=== PATIENT | female | born 1940 | race Caucasian/White ===

== ENCOUNTER 2019-03-03 00:40 | Emergency (ER) | payer MEDICARE, OTHER ==
[~2019-03-03] VITALS: Ht 149.9 cm; Wt 65.8 kg
[~2019-03-03 00:40] MED LIST: ALPR.25; ALPR1; ALPR1 PO; CLIMARA; CYCL10; ESOM20; ESOM20 PO; ESTR.05TPB; ESTR.1TPBW; EZET10 PO; LEVO750 PO; METO10 PO; Norco 5-325 Ta1 EACH PO; OLME20; OMEP40CA12 PO; PANT40; PRED10 PO; RXALBOI INH; SIMV10; Valium2 MG PO
[2019-03-03] MEDS ORDERED: SIMV40 PO (01:13)
[2019-03-03] MEDS ORDERED: OLME20 PO (01:13)
[2019-03-03] MEDS ORDERED: NYST237S SS (01:37)
[2019-03-03] MEDS ORDERED: Zovirax400 MG PO (01:37)
== END 2019-03-03 02:01 | disposition home or self-care (01) ==
LOC: ER 00:40
DX: B00.2 Herpesviral gingivostomatitis and pharyngotonsillitis (principal); Z88.2 Allergy status to sulfonamides; Z88.5 Allergy status to narcotic agent; Z79.899 Other long term (current) drug therapy; J44.9 Chronic obstructive pulmonary disease, unspecified; K21.9 Gastro-esophageal reflux disease without esophagitis; F41.9 Anxiety disorder, unspecified; Z87.891 Personal history of nicotine dependence
CPT/HCPCS: 99282

== ENCOUNTER 2019-05-11 20:52 | Emergency (ER) | payer MEDICARE, OTHER ==
[~2019-05-11] VITALS: Ht 149.9 cm; Wt 65.8 kg
[~2019-05-11 20:52] MED LIST changes: +NYST237S SS; +OLME20 PO; +SIMV40 PO; +Zovirax400 MG PO
[2019-05-11] MEDS ORDERED: SUCRALFATE 1 GM (21:08)
[2019-05-11] MEDS ORDERED: AMIT10 PO (21:08)
[2019-05-11] MEDS ORDERED: LIDOCAINE 2% (21:08)
[2019-05-11] MEDS ORDERED: Protonix40 MG PO (21:08)
[2019-05-11 21:30] LABS: BASOPHILS ABSOLUTE AUTO 0.01 K/mm3 (0.00-0.23); BASOPHILS PERCENT AUTO 0 % (0-2); EOSINOPHILS ABSOLUTE AUTO 0.14 K/mm3 (0.00-0.68); EOSINOPHILS PERCENT AUTO 3 % (0-6); Hematocrit 41.7 % (33.0-51.0); Hemoglobin 13.5 g/dL (11.5-16.0); IMMATURE GRAN ABSOLUTE AUTO 0.01 K/mm3 (0.00-0.10); IMMATURE GRAN PERCENT AUTO 0 % (0-1); LYMPHOCYTES PERCENT AUTO 37 % (21-46); MONOCYTES ABSOLUTE AUTO 0.48 K/mm3 (0.16-1.47); MONOCYTES PERCENT AUTO 9 % (4-13); Mean Corpuscular HGB 30.5 pg (26.0-34.0); Mean Corpuscular HGB Conc 32.4 g/dL (31.5-36.5); Mean Corpuscular Volume 94 fL (80-100); Mean Platelet Volume 8.9 fL (9.1-12.4); NEUTROPHILS ABSOLUTE AUTO 2.74 K/mm3 (1.96-9.15); NEUTROPHILS PERCENT AUTO 51 % (41-73); Platelet Count 237 K/mm3 (150-400); RDW Coefficient Variation 12.1 % (11.7-14.2); RDW Standard Deviation 42.4 fL (35.1-46.3); Red Blood Cell Count 4.42 M/mm3 (3.80-5.20); White Blood Cell Count 5.38 K/mm3 (4.00-11.30)
[2019-05-11 21:59] LABS: Alanine Aminotransfer (ALT/SGP 24 U/L (12-78); Albumin, Blood 3.6 g/dL (3.4-5.0); Alk Phos 90 U/L (50-136); Anion Gap 5 mmol/L (6-16); Aspartate Aminotrans (AST/SGOT 21 U/L (12-37); Bilirubin, Total 0.2 mg/dL (0.1-1.0); Blood Urea Nitrogen 23 mg/dL (8-24); Bun/Creatinine Ratio 26.8 (12.0-20.0); CO2, Blood 31 mmol/L (21-32); Chloride, Blood 107 mmol/L (98-108); Creatinine, Blood 0.86 mg/dL (0.40-1.00); Globulin, Blood 3.5 g/dL (2.2-4.0); Glomerular Filtration Rate >60 (60-); Glucose, Blood 132 mg/dL (70-99); Potassium, Blood 3.8 mmol/L (3.5-5.5); Sodium, Blood 143 mmol/L (136-145); Total Protein, Blood 7.1 g/dL (6.4-8.2); Troponin I <0.015 ng/mL (0.000-0.040)
== END 2019-05-12 01:03 | disposition home or self-care (01) ==
LOC: ER 20:52
PROVIDERS: Physician Assistant
DX: R07.9 Chest pain, unspecified (principal); R06.02 Shortness of breath; J44.9 Chronic obstructive pulmonary disease, unspecified; F41.9 Anxiety disorder, unspecified; E78.5 Hyperlipidemia, unspecified; Z88.2 Allergy status to sulfonamides; Z88.5 Allergy status to narcotic agent; Z79.899 Other long term (current) drug therapy; Z87.891 Personal history of nicotine dependence
CPT/HCPCS: 36415; 71046; 71260; 80053; 84484; 85025; 85379; 93005; 93010; 96374-59; 96375-59; 99284-25; J1885; J2930; Q9967

== ENCOUNTER 2019-05-15 23:08 | Emergency (ER) | payer MEDICARE, OTHER ==
[~2019-05-15] VITALS: Ht 149.9 cm; Wt 63.5 kg
[~2019-05-15 23:08] MED LIST changes: +AMIT10 PO; +LIDOCAINE 2%; +Protonix40 MG PO; +SUCRALFATE 1 GM
[2019-05-16 01:44] LABS: BASOPHILS ABSOLUTE AUTO 0.03 K/mm3 (0.00-0.23); BASOPHILS PERCENT AUTO 1 % (0-2); EOSINOPHILS ABSOLUTE AUTO 0.18 K/mm3 (0.00-0.68); EOSINOPHILS PERCENT AUTO 3 % (0-6); Hematocrit 45.4 % (33.0-51.0); Hemoglobin 14.8 g/dL (11.5-16.0); IMMATURE GRAN ABSOLUTE AUTO 0.03 K/mm3 (0.00-0.10); IMMATURE GRAN PERCENT AUTO 1 % (0-1); LYMPHOCYTES ABSOLUTE AUTO 1.64 K/mm3 (0.84-5.20); LYMPHOCYTES PERCENT AUTO 30 % (21-46); MONOCYTES ABSOLUTE AUTO 0.37 K/mm3 (0.16-1.47); MONOCYTES PERCENT AUTO 7 % (4-13); Mean Corpuscular HGB 30.9 pg (26.0-34.0); Mean Corpuscular HGB Conc 32.6 g/dL (31.5-36.5); Mean Corpuscular Volume 95 fL (80-100); Mean Platelet Volume 9.1 fL (9.1-12.4); NEUTROPHILS ABSOLUTE AUTO 3.18 K/mm3 (1.96-9.15); NEUTROPHILS PERCENT AUTO 59 % (41-73); Platelet Count 278 K/mm3 (150-400); RDW Standard Deviation 42.3 fL (35.1-46.3); Red Blood Cell Count 4.79 M/mm3 (3.80-5.20); White Blood Cell Count 5.43 K/mm3 (4.00-11.30)
[2019-05-16 01:53] LABS: Source, Urine Clean Catch
[2019-05-16 01:57] LABS: Bilirubin, Urine Neg (Neg); Blood, Urine 1+ (Neg); Glucose Qualitative, Urine Neg (Neg); Ketones, Urine Neg (Neg); Leukocyte Esterase, Urine 2+ (Neg); Nitrite, Urine Neg (Neg); Protein, Urine Neg (Neg); Urobilinogen, Urine NORM (Normal)
[2019-05-16 01:59] LABS: Appearance, Urine Clear (Clear); Color, Urine Yellow (P-Yellow)
[2019-05-16 02:00] LABS: Alanine Aminotransfer (ALT/SGP 32 U/L (12-78); Albumin/Globulin Ratio 1.1 (0.8-1.8); Alk Phos 116 U/L (50-136); Anion Gap 5 mmol/L (6-16); Aspartate Aminotrans (AST/SGOT 28 U/L (12-37); Bilirubin, Total 0.3 mg/dL (0.1-1.0); Blood Urea Nitrogen 24 mg/dL (8-24); Bun/Creatinine Ratio 27.3 (12.0-20.0); CO2, Blood 31 mmol/L (21-32); Calcium, Blood 9.3 mg/dL (8.5-10.1); Chloride, Blood 104 mmol/L (98-108); Creatinine, Blood 0.88 mg/dL (0.40-1.00); Globulin, Blood 3.8 g/dL (2.2-4.0); Glomerular Filtration Rate >60 (60-); Glucose, Blood 121 mg/dL (70-99); Magnesium, Blood 2.6 mg/dL (1.6-2.4); Potassium, Blood 4.7 mmol/L (3.5-5.5); Sodium, Blood 140 mmol/L (136-145); Total Protein, Blood 7.8 g/dL (6.4-8.2); Troponin I <0.015 ng/mL (0.000-0.040)
[2019-05-16 02:02] LABS: Bacteria Not Seen /hpf; Red Blood Cells, Urine Not Seen /hpf (0-2); Squamous Epithelial Cells Mod /hpf (Few)
== END 2019-05-16 03:40 | disposition home or self-care (01) ==
LOC: ER 23:08
PROVIDERS: Emergency Medicine
DX: K59.00 Constipation, unspecified (principal); K21.9 Gastro-esophageal reflux disease without esophagitis; F41.9 Anxiety disorder, unspecified; E78.5 Hyperlipidemia, unspecified; J44.9 Chronic obstructive pulmonary disease, unspecified; Z87.891 Personal history of nicotine dependence; Z88.2 Allergy status to sulfonamides; Z88.5 Allergy status to narcotic agent; Z79.899 Other long term (current) drug therapy
CPT/HCPCS: 36415; 74176; 80053; 81001; 83690; 83735; 83880; 84484; 85025; 87086; 87147; 93005; 93010; 99284-25

== ENCOUNTER 2019-10-15 22:09 | Inpatient (IN) | payer MEDICARE, OTHER ==
[~2019-10-15] VITALS: Ht 149.9 cm; Wt 67.4 kg
[2019-10-15 22:45] LABS: BASOPHILS ABSOLUTE AUTO 0.03 K/mm3 (0.00-0.23); BASOPHILS PERCENT AUTO 0 % (0-2); EOSINOPHILS ABSOLUTE AUTO 0.35 K/mm3 (0.00-0.68); EOSINOPHILS PERCENT AUTO 4 % (0-6); Hematocrit 41.5 % (33.0-51.0); Hemoglobin 12.9 g/dL (11.5-16.0); IMMATURE GRAN ABSOLUTE AUTO 0.03 K/mm3 (0.00-0.10); IMMATURE GRAN PERCENT AUTO 0 % (0-1); LYMPHOCYTES PERCENT AUTO 18 % (21-46); MONOCYTES PERCENT AUTO 11 % (4-13); Mean Corpuscular HGB 29.7 pg (26.0-34.0); Mean Corpuscular HGB Conc 31.1 g/dL (31.5-36.5); Mean Corpuscular Volume 95 fL (80-100); Mean Platelet Volume 9.2 fL (9.1-12.4); NEUTROPHILS ABSOLUTE AUTO 6.81 K/mm3 (1.96-9.15); NEUTROPHILS PERCENT AUTO 67 % (41-73); Platelet Count 277 K/mm3 (150-400); RDW Coefficient Variation 11.9 % (11.7-14.2); RDW Standard Deviation 41.7 fL (35.1-46.3); Red Blood Cell Count 4.35 M/mm3 (3.80-5.20); White Blood Cell Count 10.12 K/mm3 (4.00-11.30)
[2019-10-15 23:05] LABS: Alanine Aminotransfer (ALT/SGP 22 U/L (12-78); Albumin, Blood 3.1 g/dL (3.4-5.0); Albumin/Globulin Ratio 0.7 (0.8-1.8); Alk Phos 107 U/L (50-136); Anion Gap 7 mmol/L (6-16); Aspartate Aminotrans (AST/SGOT 18 U/L (12-37); Bilirubin, Total 0.2 mg/dL (0.1-1.0); Blood Urea Nitrogen 19 mg/dL (8-24); Bun/Creatinine Ratio 17.4 (12.0-20.0); CO2, Blood 32 mmol/L (21-32); Chloride, Blood 101 mmol/L (98-108); Creatinine, Blood 1.09 mg/dL (0.40-1.00); Globulin, Blood 4.6 g/dL (2.2-4.0); Glomerular Filtration Rate 52 (60-); Glucose, Blood 147 mg/dL (70-99); Potassium, Blood 3.7 mmol/L (3.5-5.5); Sodium, Blood 140 mmol/L (136-145); Total Protein, Blood 7.7 g/dL (6.4-8.2); Troponin I <0.015 ng/mL (0.000-0.040)
[2019-10-15 23:25] LABS: Influenza A Negative (NEGATIVE); Influenza B Negative (NEGATIVE)
[2019-10-16 04:41] LABS: Hematocrit 38.5 % (33.0-51.0); Hemoglobin 11.8 g/dL (11.5-16.0); Mean Corpuscular HGB 29.5 pg (26.0-34.0); Mean Corpuscular HGB Conc 30.6 g/dL (31.5-36.5); Mean Corpuscular Volume 96 fL (80-100); Mean Platelet Volume 9.1 fL (9.1-12.4); Platelet Count 264 K/mm3 (150-400); RDW Coefficient Variation 11.9 % (11.7-14.2); RDW Standard Deviation 42.8 fL (35.1-46.3); White Blood Cell Count 7.69 K/mm3 (4.00-11.30)
[2019-10-16 04:51] LABS: Adenovirus Not Detected (NOT DETECT); Bordetella pertussis Not Detected (NOT DETECT); Chlamydophila pneumoniae Not Detected (NOT DETECT); Coronavirus 229E Not Detected (NOT DETECT); Coronavirus HKU1 Not Detected (NOT DETECT); Coronavirus NL63 Not Detected (NOT DETECT); Coronavirus OC43 Not Detected (NOT DETECT); Human Metapneumovirus Not Detected (NOT DETECT); Human Rhinovirus/Enterovirus Not Detected (NOT DETECT); Influenza A Not Detected (NOT DETECT); Influenza A/2009-H1 Not Detected (NOT DETECT); Influenza A/H1 Not Detected (NOT DETECT); Influenza A/H3 Not Detected (NOT DETECT); Influenza B Not Detected (NOT DETECT); Mycoplasma pneumoniae Not Detected (NOT DETECT); Parainfluenza Virus 1 Not Detected (NOT DETECT); Parainfluenza Virus 2 Not Detected (NOT DETECT); Parainfluenza Virus 3 Not Detected (NOT DETECT); Parainfluenza Virus 4 Not Detected (NOT DETECT); Respiratory Syncytial Virus Not Detected (NOT DETECT)
[2019-10-16 05:00] LABS: Alanine Aminotransfer (ALT/SGP 20 U/L (12-78); Albumin, Blood 2.8 g/dL (3.4-5.0); Albumin/Globulin Ratio 0.6 (0.8-1.8); Alk Phos 93 U/L (50-136); Anion Gap 8 mmol/L (6-16); Aspartate Aminotrans (AST/SGOT 16 U/L (12-37); Bilirubin, Total 0.2 mg/dL (0.1-1.0); Blood Urea Nitrogen 14 mg/dL (8-24); Bun/Creatinine Ratio 15.3 (12.0-20.0); CO2, Blood 28 mmol/L (21-32); Calcium, Blood 8.8 mg/dL (8.5-10.1); Chloride, Blood 103 mmol/L (98-108); Creatinine, Blood 0.92 mg/dL (0.40-1.00); Globulin, Blood 4.4 g/dL (2.2-4.0); Glomerular Filtration Rate >60 (60-); Glucose, Blood 212 mg/dL (70-99); Potassium, Blood 3.9 mmol/L (3.5-5.5); Sodium, Blood 139 mmol/L (136-145); Total Protein, Blood 7.2 g/dL (6.4-8.2)
--- NOTE | 2019-10-16 07:38 | NUR ---
SHIFT SUMMARY PT NEW ADMIT THIS AM. AAOX4. ON 3L VIA NC, DENIES SOB AT REST. PT ORIENTED TO ROOM + CALL LIGHT USE. SBA UP TO RESTROOM, TOLERATES WELL. PT RESTING IN SMALL INCRIMENTS SINCE ADMISSION TO FLOOR. NO ACUTE RESPIRATORY DISTRESS NOTED. REPORT TO DAY SHIFT RN. PT SITTING UP IN BED AT THIS TIME WITH CALL LIGHT IN REACH.
--- NOTE | 2019-10-16 16:44 | NUR ---
SHIFT SUMMARY PT A&OX4, VSS, 3LNC, REP SOB W/EXERTION IMPROVED TODAY, LUNGS DIMINISHED, FLUTTER VALVE, I.S. AND TCDB EDU & ENC. AMBULATES INDEPENDENT TO BRP. STARTED ORAL PREDNISONE AND AZITH. MAISHA PO, DENIES N&V. VOIDING WELL. WILL REPORT TO ONCOMING NOC RN.
--- NOTE | 2019-10-17 05:47 | NUR ---
SHIFT SUMMARY: GLENYS HAS RESTED INTERMITTENTLY DURING THE SHIFT. SHE HAS COMPLAINED OF A "TICKLE" IN HER THROAT FOR WHICH SHE REPORTED THE PRN ALBUTEROL TREATMENT WAS HELPFUL. SHE IS ASKING ABOUT COUGH DROPS TO AID WITH SAID TICKLE. SHE IS ABLE TO MAKE HER NEEDS KNOWN. SHE IS MAINTAINING SATURATIONS WITH O2 VIA NC AT 3 LPM. SHE USES HER CALL LIGHT APPROPRIATELY. SHE IS SITTING UP IN BED WITH HER CALL LIGHT IN REACH. WILL REPORT TO DAY SHIFT RN.
[2019-10-17] MEDS ORDERED: ACET325 PO (14:14)
[2019-10-17] MEDS ORDERED: AZIT250 PO (14:15)
[2019-10-17] MEDS ORDERED: ALBU2.5V5 INH (14:15)
[2019-10-17] MEDS ORDERED: Duoneb 2.5-0.5 M3 ML INH (14:18)
[2019-10-17] MEDS ORDERED: ONDA4ODT MM (14:18)
[2019-10-17] MEDS ORDERED: PRED10 PO (14:20)
[2019-10-17] MEDS ORDERED: ALBU90OI INH (14:20)
--- NOTE | 2019-10-17 15:55 | NUR ---
DISCHARGE SUMMARY PT A&OX4, VSS, LEFT FLOOR VIA WC WITH RN, TO GO HOME WITH PARTNER, WITH ALL PERSONAL POSSESSIONS INCLUDING DC PACKET, WEARING 4LNC PORTABLE OXYGEN; [facility] DELIVERED OXYGEN EQUIPMENT TO HOSPITAL PER ORDERS FROM RT THAT WERE FAXED OVER. [facility] I SENT A COPY OF PT SCRIPT CARD PER REQUEST OF "JOVI" AT [facility]. PT REP WILL DRIVE THROUGH TO [facility] S[facility] PRIOR TO GOING HOME. DC ORDERS PROVIDED TO PT, PT AND PARTNER JERICHO BROWN UNDERSTOOD THOSE. IV DC'D.
== END 2019-10-17 16:00 | disposition home or self-care (01) | DRG 189 ==
LOC: ER 22:09 → SURS 10-16 01:12
PROVIDERS: Emergency Medicine; ADMIT Internal Medicine
DX: J96.21 Acute and chronic respiratory failure with hypoxia (principal); J44.1 Chronic obstructive pulmonary disease with (acute) exacerbation; I10 Essential (primary) hypertension; K21.9 Gastro-esophageal reflux disease without esophagitis; D75.1 Secondary polycythemia; F41.9 Anxiety disorder, unspecified; R00.0 Tachycardia, unspecified; E78.00 Pure hypercholesterolemia, unspecified; Z88.2 Allergy status to sulfonamides; Z88.5 Allergy status to narcotic agent; Z87.891 Personal history of nicotine dependence
CPT/HCPCS: 0099U; 36415; 71045; 80053; 83605; 83735; 83880; 84145; 84484; 85025; 85027; 87070; 87205; 87804; 93005; 93010; 94640; 94644; 94760; 94761; 96360; 96361; 99285-25; A9270-GY; J1650; J1956; J2930; J7030; J7512

== ENCOUNTER 2020-05-25 07:53 | Day surgery (SDC) | payer MEDICARE, OTHER ==
[~2020-05-25] VITALS: Ht 149.9 cm; Wt 67.6 kg
[~2020-05-25 07:53] MED LIST changes: +ACET325 PO; +ALBU2.5V5 INH; +ALBU90OI INH; +AZIT250 PO; +Duoneb 2.5-0.5 M3 ML INH; +LIVALO2 MG; +ONDA4ODT MM
--- NOTE | 2020-05-25 08:25 | NUR ---
05/25/20 0825 MAMI GARZA ONE ATTEMPT IN RH BY YEN VALVE ONE SUCCESFUL IN RFA BY YEN PT TOW
--- NOTE | 2020-05-25 09:42 | NUR ---
05/25/20 0942 Coco Watson WHEN INSERTED THE SCOPE, PT DESATURATED TO 82% AND CHIN LIFT WAS DONE, PALM MASK WAS PLACED AND CONTINUAL JAW THRUST THROUGH THE PROCEDURE UNTIL ABOUT THE LAST FIVE MINS.
--- NOTE | 2020-05-25 10:03 | NUR ---
05/25/20 1003 Mariana Del Angel V PT REPORTS DISCOMFORT IN HER R IN . R EYE APPEARS SLIGHTLY RED AND WATERY, NO OBVIOUS ABRASIONS NOTED. PRIOR TO D/C PT STATED DISCOMFORT WAS IMPROVING.
== END 2020-05-25 09:59 | disposition home or self-care (01) ==
LOC: ORSCSDS 07:53
PROVIDERS: Student in an Organized Health Care Education/Training Program
PROC: 0DB48ZX Excision of Esophagogastric Junction, Via Natural or Artificial Opening Endoscopic, Diagnostic (ICD-10-PCS; principal; 2020-05-25 09:15)
PROC: 0DB88ZX Excision of Small Intestine, Via Natural or Artificial Opening Endoscopic, Diagnostic (ICD-10-PCS; principal; 2020-05-25 09:15)
PROC: 0DB68ZX Excision of Stomach, Via Natural or Artificial Opening Endoscopic, Diagnostic (ICD-10-PCS; principal; 2020-05-25 09:15)
DX: R10.13 Epigastric pain (principal); K31.7 Polyp of stomach and duodenum; K29.80 Duodenitis without bleeding; K21.9 Gastro-esophageal reflux disease without esophagitis; I10 Essential (primary) hypertension; E78.5 Hyperlipidemia, unspecified; E66.9 Obesity, unspecified; Z68.30 Body mass index [BMI] 30.0-30.9, adult; K44.9 Diaphragmatic hernia without obstruction or gangrene; K29.70 Gastritis, unspecified, without bleeding; Z79.899 Other long term (current) drug therapy
CPT/HCPCS: 88305; 88342; J2704; J7120

== ENCOUNTER 2023-06-15 11:13 | Emergency (ER) | payer MEDICARE, OTHER ==
[~2023-06-15] VITALS: Ht 149.9 cm; Wt 72.6 kg
[2023-06-15] MEDS ORDERED: TAMSULOSIN HCL0.4 M1 PO (11:40)
[2023-06-15] MEDS ORDERED: TRAM50 PO (11:40)
[2023-06-15 11:43] LABS: Source, Urine Clean Catch
[2023-06-15 11:49] LABS: BASOPHILS ABSOLUTE AUTO 0.02 K/mm3 (0.00-0.23); BASOPHILS PERCENT AUTO 0 % (0-2); EOSINOPHILS ABSOLUTE AUTO 0.07 K/mm3 (0.00-0.68); EOSINOPHILS PERCENT AUTO 1 % (0-6); Hematocrit 42.6 % (33.0-51.0); IMMATURE GRAN ABSOLUTE AUTO 0.02 K/mm3 (0.00-0.10); IMMATURE GRAN PERCENT AUTO 0 % (0-1); LYMPHOCYTES ABSOLUTE AUTO 1.83 K/mm3 (0.84-5.20); LYMPHOCYTES PERCENT AUTO 25 % (21-46); MONOCYTES ABSOLUTE AUTO 0.63 K/mm3 (0.16-1.47); MONOCYTES PERCENT AUTO 9 % (4-13); Mean Corpuscular HGB Conc 32.9 g/dL (31.5-36.5); Mean Corpuscular Volume 91 fL (80-100); Mean Platelet Volume 8.8 fL (9.1-12.4); NEUTROPHILS ABSOLUTE AUTO 4.65 K/mm3 (1.96-9.15); NEUTROPHILS PERCENT AUTO 64 % (41-73); Platelet Count 267 K/mm3 (150-400); RDW Coefficient Variation 12.4 % (11.7-14.2); RDW Standard Deviation 41.5 fL (35.1-46.3); Red Blood Cell Count 4.66 M/mm3 (3.80-5.20); White Blood Cell Count 7.22 K/mm3 (4.00-11.30)
[2023-06-15 11:53] LABS: Appearance, Urine Hazy (Clear); Bilirubin, Urine Neg (Neg); Blood, Urine Neg (Neg); Color, Urine Yellow (P-Yellow); Glucose Qualitative, Urine Neg (Neg); Ketones, Urine Neg (Neg); Leukocyte Esterase, Urine Neg (Neg); Nitrite, Urine Neg (Neg); Protein, Urine Neg (Neg); Urobilinogen, Urine NORM (Normal)
[2023-06-15 12:18] LABS: Albumin, Blood 3.9 g/dL (3.4-5.0); Albumin/Globulin Ratio 1.1 (0.8-1.8); Bilirubin, Total 0.3 mg/dL (0.1-1.0); Bun/Creatinine Ratio 21.7 (12.0-20.0); Calcium, Blood 8.9 mg/dL (8.5-10.1); Creatinine, Blood 1.15 mg/dL (0.40-1.00); Globulin, Blood 3.7 g/dL (2.2-4.0); Total Protein, Blood 7.6 g/dL (6.4-8.2)
[2023-06-15 13:00] LABS: Bacteria Rare /hpf; Red Blood Cells, Urine Not Seen /hpf (0-2); Squamous Epithelial Cells Few /hpf (Few); White Blood Cells, Urine 0-2 /hpf (0-5)
[2023-06-15 13:30] VITALS: BP 108/51
[2023-06-15] MEDS ORDERED: Pyridium100 MG PO (13:43)
== END 2023-06-15 14:10 | disposition home or self-care (01) ==
LOC: ER 11:13
PROVIDERS: Physician Assistant
DX: R10.30 Lower abdominal pain, unspecified (principal); R30.0 Dysuria; Z88.5 Allergy status to narcotic agent; Z88.2 Allergy status to sulfonamides; Z79.899 Other long term (current) drug therapy; J44.9 Chronic obstructive pulmonary disease, unspecified; K21.9 Gastro-esophageal reflux disease without esophagitis; E78.5 Hyperlipidemia, unspecified; Z87.891 Personal history of nicotine dependence
CPT/HCPCS: 74177; 80053; 81001; 83690; 85025; 99284-25; J7030; Q9967

== ENCOUNTER 2024-10-26 16:24 | Observation (INO) | payer MEDICARE, OTHER ==
[~2024-10-26] VITALS: Ht 149.9 cm; Wt 72.8 kg
[~2024-10-26 16:24] MED LIST changes: +Pyridium100 MG PO; +TAMSULOSIN HCL0.4 M1 PO; +TRAM50 PO
[2024-10-26] MEDS ORDERED: Acetaminophen 500 MG Tab PO ONE (17:05)
[2024-10-26 17:28] LABS: BASOPHILS ABSOLUTE AUTO 0.02 K/mm3 (0.00-0.23); BASOPHILS PERCENT AUTO 0 % (0-2); EOSINOPHILS ABSOLUTE AUTO 0.05 K/mm3 (0.00-0.68); EOSINOPHILS PERCENT AUTO 1 % (0-6); Hematocrit 38.6 % (33.0-51.0); Hemoglobin 12.7 g/dL (11.5-16.0); IMMATURE GRAN ABSOLUTE AUTO 0.02 K/mm3 (0.00-0.10); IMMATURE GRAN PERCENT AUTO 0 % (0-1); LYMPHOCYTES ABSOLUTE AUTO 0.95 K/mm3 (0.84-5.20); LYMPHOCYTES PERCENT AUTO 15 % (21-46); MONOCYTES ABSOLUTE AUTO 0.62 K/mm3 (0.16-1.47); MONOCYTES PERCENT AUTO 10 % (4-13); Mean Corpuscular HGB 30.6 pg (26.0-34.0); Mean Corpuscular HGB Conc 32.9 g/dL (31.5-36.5); Mean Corpuscular Volume 93 fL (80-100); Mean Platelet Volume 8.5 fL (9.1-12.4); NEUTROPHILS ABSOLUTE AUTO 4.89 K/mm3 (1.96-9.15); NEUTROPHILS PERCENT AUTO 75 % (41-73); Platelet Count 225 K/mm3 (150-400); RDW Coefficient Variation 12.2 % (11.7-14.2); RDW Standard Deviation 42.2 fL (35.1-46.3); Red Blood Cell Count 4.15 M/mm3 (3.80-5.20); White Blood Cell Count 6.55 K/mm3 (4.00-11.30)
[2024-10-26 17:53] LABS: Albumin, Blood 3.6 g/dL (3.4-5.0); Albumin/Globulin Ratio 0.9 (0.8-1.8); Bilirubin, Total 0.3 mg/dL (0.1-1.0); Bun/Creatinine Ratio 14.2 (12.0-20.0); Calcium, Blood 9.4 mg/dL (8.5-10.1); Creatinine, Blood 0.92 mg/dL (0.40-1.00); Potassium, Blood 4.4 mmol/L (3.5-5.5); Total Protein, Blood 7.6 g/dL (6.4-8.2)
[2024-10-26] MEDS ORDERED: NS 1,000 ML IV SCH (18:45)
[2024-10-26 19:08] LABS: Influenza A, PCR NEGATIVE (NEGATIVE); Influenza B, PCR NEGATIVE (NEGATIVE); Resp Syncytial Virus, PCR NEGATIVE (NEGATIVE); SARS-Cov-2 (COVID-19) PCR, MMC NEGATIVE (NEGATIVE)
[2024-10-26 19:52] LABS: Magnesium, Blood 2.5 mg/dL (1.6-2.4); Phosphorus, Blood 2.9 mg/dL (2.5-4.9)
[2024-10-26 22:01] LABS: Adenovirus Not Detected (NOT DETECT); Bordetella pertussis Not Detected (NOT DETECT); Chlamydophila pneumoniae Not Detected (NOT DETECT); Coronavirus 229E Not Detected (NOT DETECT); Coronavirus HKU1 Not Detected (NOT DETECT); Coronavirus NL63 Not Detected (NOT DETECT); Coronavirus OC43 Detected (NOT DETECT); Human Metapneumovirus Not Detected (NOT DETECT); Human Rhinovirus/Enterovirus Not Detected (NOT DETECT); Influenza A/2009-H1 Not Detected (NOT DETECT); Influenza A/H1 Not Detected (NOT DETECT); Influenza A/H3 Not Detected (NOT DETECT); Influenza B Not Detected (NOT DETECT); Mycoplasma pneumoniae Not Detected (NOT DETECT); Parainfluenza Virus 1 Not Detected (NOT DETECT); Parainfluenza Virus 2 Not Detected (NOT DETECT); Parainfluenza Virus 3 Not Detected (NOT DETECT); Parainfluenza Virus 4 Not Detected (NOT DETECT); Respiratory Syncytial Virus Not Detected (NOT DETECT); SARS-Cov-2 (COVID-19), BioFire Not Detected (NOT DETECT)
[2024-10-26] MEDS ORDERED: FLU VACC TS2024-25(6MOS UP)/PF 45 MCG/0.5 ML SYRINGE IM ONE (22:20)
[2024-10-26] MEDS ORDERED: Magnesium Hydroxide Conc 10 ML UDC PO PRN (22:25)
[2024-10-26] MEDS ORDERED: Acetaminophen 325 MG TABLET PO PRN (22:25)
[2024-10-26] MEDS ORDERED: Ondansetron 4 MG TAB PO PRN (22:25)
[2024-10-26] MEDS ORDERED: Ipratropium/Albuterol SulF 2.5-0.5MG/3 ML Amp INH SCH (22:25)
[2024-10-26] MEDS ORDERED: Albuterol 2.5 MG/3 ML VIAL INH PRN (22:40)
[2024-10-26] MEDS ORDERED: TRELEGY ELLIPT1 EACH IH (22:53)
[2024-10-26] MEDS ORDERED: VITAMIN D5000 UNIT PO (22:57)
[2024-10-26 22:58] VITALS: BP 138/75
[2024-10-26] MEDS ORDERED: MULTI-VITAMIN1 EAC2 PO (22:58)
[2024-10-27 05:14] LABS: BASOPHILS ABSOLUTE AUTO 0.02 K/mm3 (0.00-0.23); BASOPHILS PERCENT AUTO 0 % (0-2); EOSINOPHILS ABSOLUTE AUTO 0.09 K/mm3 (0.00-0.68); EOSINOPHILS PERCENT AUTO 2 % (0-6); Hematocrit 34.8 % (33.0-51.0); Hemoglobin 11.2 g/dL (11.5-16.0); IMMATURE GRAN ABSOLUTE AUTO 0.01 K/mm3 (0.00-0.10); IMMATURE GRAN PERCENT AUTO 0 % (0-1); LYMPHOCYTES ABSOLUTE AUTO 1.25 K/mm3 (0.84-5.20); LYMPHOCYTES PERCENT AUTO 23 % (21-46); MONOCYTES ABSOLUTE AUTO 0.62 K/mm3 (0.16-1.47); MONOCYTES PERCENT AUTO 12 % (4-13); Mean Corpuscular HGB 30.2 pg (26.0-34.0); Mean Corpuscular HGB Conc 32.2 g/dL (31.5-36.5); Mean Corpuscular Volume 94 fL (80-100); Mean Platelet Volume 8.5 fL (9.1-12.4); NEUTROPHILS ABSOLUTE AUTO 3.36 K/mm3 (1.96-9.15); NEUTROPHILS PERCENT AUTO 63 % (41-73); Platelet Count 212 K/mm3 (150-400); RDW Coefficient Variation 12.4 % (11.7-14.2); RDW Standard Deviation 42.8 fL (35.1-46.3); Red Blood Cell Count 3.71 M/mm3 (3.80-5.20); White Blood Cell Count 5.35 K/mm3 (4.00-11.30)
[2024-10-27 06:41] LABS: Bun/Creatinine Ratio 12.6 (12.0-20.0); C-REACTIVE PROTEIN, EXT RANGE 9.16 mg/dL (0.000-0.300); Calcium, Blood 8.8 mg/dL (8.5-10.1); Creatinine, Blood 0.79 mg/dL (0.40-1.00); Potassium, Blood 4.1 mmol/L (3.5-5.5)
[2024-10-27 07:33] VITALS: BP 131/90
--- NOTE | 2024-10-27 07:53 | NUR ---
SHIFT SUMMARY PT ARRIVED TO FLOOR APPROX 2240 WITH XYPOXIA R/T COPD EXACURBATION. 0100, PT COMPLAINING I CAN T BREATH . RT CALLED AND BREATHING TREATMENT ADMINISTERED. PT GIVEN BREATHING TX AND NC O2 TURNED UP TO 4L, WHICH IS HER BL. SHE WAS ABLE TO SLEEP A LITTLE WILL RELAY TO DAY NURSE.
[2024-10-27] MEDS ORDERED: Enoxaparin 40 MG/0.4 ML SYR SC SCH (09:00)
[2024-10-27] MEDS ORDERED: Losartan Potassium 50 MG Tab PO SCH (09:00)
[2024-10-27] MEDS ORDERED: Sennosides 8.6 MG Tab PO SCH (09:00)
[2024-10-27] MEDS ORDERED: ALBU90OI INH (15:37)
--- NOTE | 2024-10-27 18:06 | NUR ---
DC-[id number] PT DC IN STABLE CONDITION WITH ALL BELONGINGS. PT'S S/O JUNITO PICKED UP PT. PT ON 1L AT REST AND 4L WITH EXCERTION. PT LEFT WITH HOME OXYGEN TANK.
== END 2024-10-27 15:51 | disposition home or self-care (01) ==
LOC: ER 16:24 → ERHOLD 16:25 → MEDS 16:25
PROVIDERS: Emergency Medicine; Family Medicine; Nurse Practitioner Acute Care; Physician Assistant; ADMIT Internal Medicine
DX: J44.9 Chronic obstructive pulmonary disease, unspecified (principal); I10 Essential (primary) hypertension; K21.9 Gastro-esophageal reflux disease without esophagitis; B34.9 Viral infection, unspecified; E78.5 Hyperlipidemia, unspecified; Z88.2 Allergy status to sulfonamides; Z88.5 Allergy status to narcotic agent; Z79.899 Other long term (current) drug therapy; Z87.891 Personal history of nicotine dependence
CPT/HCPCS: 0202U; 0241U; 36415; 71046; 71260; 80048; 80053; 83605; 83735; 84100; 84145; 85025; 85379; 86140; 87040; 93005; 93010; 94640; 94664; 94760; 94762; 96360; 96372; 99285-25; A9270; G0378; J1650; J7030; Q9967

== ENCOUNTER 2025-03-04 10:01 | Emergency (ER) | payer OTHER, MEDICARE ==
[~2025-03-04] VITALS: Ht 149.9 cm; Wt 68.0 kg
[~2025-03-04 10:01] MED LIST changes: +MULTI-VITAMIN1 EAC2 PO; +TRELEGY ELLIPT1 EACH IH; +VITAMIN D5000 UNIT PO
[2025-03-04 10:37] VITALS: BP 148/77
[2025-03-04] MEDS ORDERED: PROZAC2010 PO (11:53)
[2025-03-04] MEDS ORDERED: HYDROcodone 5-APAP 325 TAB PO ONE (12:30)
[2025-03-04] MEDS ORDERED: Norco 5-325 Ta1 EACH PO (14:00)
== END 2025-03-04 13:58 | disposition home or self-care (01) ==
LOC: ER 10:01
DX: S52.352A Displaced comminuted fracture of shaft of radius, left arm, initial encounter for closed fracture (principal); S52.612A Displaced fracture of left ulna styloid process, initial encounter for closed fracture; Z88.2 Allergy status to sulfonamides; Z88.5 Allergy status to narcotic agent; Z79.899 Other long term (current) drug therapy; J44.9 Chronic obstructive pulmonary disease, unspecified; K21.9 Gastro-esophageal reflux disease without esophagitis; E78.5 Hyperlipidemia, unspecified; Z90.711 Acquired absence of uterus with remaining cervical stump; Z90.49 Acquired absence of other specified parts of digestive tract; Z87.891 Personal history of nicotine dependence; W01.0XXA Fall on same level from slipping, tripping and stumbling without subsequent striking against object, initial encounter
CPT/HCPCS: 29125; 72170; 73110; 99283-25; A9270